=== PATIENT | female | born 1985 | race Caucasian/White ===

== ENCOUNTER 2017-10-23 17:07 | Emergency (ER) | payer OTHER ==
[~2017-10-23] VITALS: Ht 182.9 cm; Wt 122.7 kg
[~2017-10-23 17:07] MED LIST: ADIPEX-P37.5 M1 PO; ALEVE220 MG PO; BYSTOLIC10 MG PO; BYSTOLIC5 MG PO; CELEBREX200 MG PO; CLEOCIN300 MG PO; CYMBALTA; CYMBALTA30 MG PO; CYMBALTA60 MG PO; ENALAPRIL MALEA20 MG PO; ERYTHROMYCIN O3.5 GM BOTH EYES; KEFLEX500 MG PO; LEXAPRO20 MG PO; METHADONE1 MG/1 ML PO; METHADONE10 MG PO; METHADONE5 MG PO; OXYCODONE HCL15 MG PO; PERCOCET 5/31 TABLET PO; PERCOCET 7.5-31 EACH PO; PHENTERMINE H37.5 MG PO; POLYMYXIN B-TMP10 ML LEFT EYE; ROXICODONE5 MG PO; VALIUM10 MG PO; VIGAMOX 0.60 DROP/3 LEFT EYE; VOLTAREN75 MG PO; ZOFRAN4 MG PO
[2017-10-23] MEDS ORDERED: MOTRIN600 MG PO (19:06)
[2017-10-23] MEDS ORDERED: SKELAXIN800 MG PO (19:06)
[2017-10-23 19:33] VITALS: BP 167/97
== END 2017-10-23 19:33 | disposition home or self-care (01) ==
LOC: EME 17:07
DX: S16.1XXA Strain of muscle, fascia and tendon at neck level, initial encounter (principal); R51 Headache; M79.601 Pain in right arm; M25.511 Pain in right shoulder; M25.512 Pain in left shoulder; V49.40XA Driver injured in collision with unspecified motor vehicles in traffic accident, initial encounter; Y92.410 Unspecified street and highway as the place of occurrence of the external cause; Z72.0 Tobacco use
CPT/HCPCS: 72040; 99281; 99284; J1885